=== PATIENT | male | born 1960 | race African-American/Black ===

== ENCOUNTER 2024-02-21 04:18 | Inpatient (IN) | payer SELFPAY ==
[2024-02-21] VITALS (15 sets, daily range): BP systolic 118–163; BP diastolic 68–136; PULSE 69–85; RESP 16–31; TEMP 97.6–98.7; O2SAT 95–96
[~2024-02-21] VITALS: Ht 195.6 cm; Wt 86.6 kg
[2024-02-21] MEDS ORDERED: IPRATROPIUM BROMIDE (0.02%) 0.5MG/2.5ML NEB HHN STA (04:27)
[2024-02-21] MEDS ORDERED: ALBUTEROL (0.083%) 2.5MG/3ML NEB HHN SCH (04:30)
[2024-02-21] MEDS: MAGNESIUM 2 G PREMIX 50 ML IV ONE (05:11)
[2024-02-21] MEDS: ONDANSETRON HCL 4MG/2ML INJ IV STA (05:11)
[2024-02-21] MEDS: METHYLPREDNISOLONE SOD SUCC 125MG/2ML (ACT-O-VIAL) IV STA (05:11)
[2024-02-21] MEDS: FUROSEMIDE 40MG/4ML VIAL IV ONE (05:11)
[2024-02-21 05:13] LABS: BASOPHILS % 1.1 % (0.0-2.0); CHLORIDE 108 mEq/L (98-107); EOSINOPHILS % 4.1 % (0.0-5.0); HEMATOCRIT. 40.9 % (42.0-52.0); HEMOGLOBIN. 13.4 g/dL (14.0-18.0); LYMPHOCYTES % 26.4 % (20.0-50.0); MEAN CORPUSCULAR HEMOGLOBIN 28.3 pg (28.0-32.0); MEAN CORPUSCULAR HGB CONC 32.7 g/dL (31.0-37.0); MEAN CORPUSCULAR VOLUME 86.4 fL (80.0-94.0); MEAN PLATELET VOLUME 9.5 fl (7.4-10.4); MONOCYTES % 8.5 % (2.0-8.0); NEUTROPHILS % 59.9 % (40.0-76.0); PLATELET 212 x1000/uL (130-400); RED BLOOD CELL COUNT 4.74 mill/uL (4.7-6.1); SODIUM 141 mEq/L (136-145); WHITE BLOOD COUNT 6.8 x1000/uL (4.5-11.0)
[2024-02-21 05:15] LABS: CALCIUM 9.3 mg/dL (8.7-10.4)
[2024-02-21 05:19] LABS: CREATININE 1.5 mg/dL (0.6-1.3)
[2024-02-21] MEDS ORDERED: CEFTRIAXONE 1GM/50ML 50 ML IV NR (05:30)
[2024-02-21] MEDS ORDERED: AZITHROMYCIN 500MG/250ML 250 ML IV NR (05:30)
[2024-02-21 06:25] LABS: TROPONIN I HIGH SENSITIVITY 86 ng/L (3.0-53)
[2024-02-21 06:46] LABS: CARBON DIOXIDE 23 mEq/L (21-32)
[2024-02-21 06:51] LABS: GLUCOSE 100 mg/dL (70-105); UREA NITROGEN BLOOD 27 mg/dL (9-23)
[2024-02-21] MEDS ORDERED: MAGNESIUM/ALUMINUM HYDROXIDE/SIMETHICONE 30ML UDC PO PRN (07:15)
[2024-02-21] MEDS ORDERED: GUAIFENESIN 200MG/10ML SUGAR FREE UDC PO PRN (07:15)
[2024-02-21] MEDS ORDERED: DOCUSATE SODIUM 100MG CAPSULE PO PRN (07:15)
[2024-02-21] MEDS ORDERED: ONDANSETRON HCL 4MG/2ML INJ IV PRN (07:15)
[2024-02-21] MEDS ORDERED: ACETAMINOPHEN 325MG TABLET PO PRN (07:15)
[2024-02-21] MEDS: NITROGLYCERIN OINT 1GM/INCH UDPKT TD SCH (07:37)
[2024-02-21 07:40] LABS: TROPONIN I HIGH SENSITIVITY 77 ng/L (3.0-53)
[2024-02-21] MEDS ORDERED: NITROGLYCERIN 0.4MG TABLET SL SL PRN (07:45)
[2024-02-21] MEDS: CLONIDINE 0.1MG TABLET PO PRN (07:50)
[2024-02-21] MEDS: ENOXAPARIN 40MG/0.4ML SYR SUBCUT SCH (08:00)
[2024-02-21] MEDS ORDERED: CEFTRIAXONE 1GM/50ML 50 ML IV SCH (08:00)
[2024-02-21 08:23] LABS: IRON 77 ug/dL (65-175)
[2024-02-21 08:24] LABS: TRIGLYCERIDE 82 mg/dL (0-150)
[2024-02-21 08:25] LABS: LDL CHOLESTEROL 114 mg/dL (5-100)
[2024-02-21 08:26] LABS: CHOLESTEROL 175 mg/dL (<200); HDL CHOLESTEROL 55 mg/dL (>55); TOTAL IRON BINDING CAPACITY 309 ug/dl (250-425)
[2024-02-21 08:28] LABS: THYROID STIMULATING HORMONE 1.14 uIU/mL (0.55-4.78)
[2024-02-21] MEDS ORDERED: AZITHROMYCIN 500 MG in DEXT 5% WATER 250 ML IV SCH (08:30)
[2024-02-21] MEDS: FUROSEMIDE 40MG/4ML VIAL IVP SCH (09:20)
[2024-02-21] MEDS: NIFEDIPINE XL 60MG TAB PO SCH (09:21)
[2024-02-21] MEDS: LOSARTAN 50 MG TABLET PO SCH (09:21)
[2024-02-21] MEDS: FAMOTIDINE 20MG TABLET PO SCH (09:21)
[2024-02-21] MEDS: GUAIFENESIN 600MG ER TABLET PO SCH (09:21)
[2024-02-21] MEDS: ASPIRIN 81MG EC TABLET PO SCH (09:21)
[2024-02-21] MEDS: SPIRONOLACTONE 25MG TABLET PO SCH (09:21)
[2024-02-21] MEDS: CEFTRIAXONE 1GM/50ML 50 ML IV SCH (13:06)
[2024-02-21] MEDS: AZITHROMYCIN 500MG/250ML 250 ML IV SCH (13:06)
[2024-02-21] MEDS: HYDRALAZINE HCL 50MG TABLET PO SCH (14:22)
[2024-02-21 14:32] LABS: FOLIC ACID (FOLATE) SERUM 19.98 ng/mL (>5.38)
[2024-02-21 15:01] LABS: VITAMIN B12 SERUM 423 pg/mL (211-911)
[2024-02-21] MEDS: IPRATROPIUM/ALBUTEROL 0.5-3(2.5)MG/3ML NEB HHN SCH (16:00)
[2024-02-21 16:11] LABS: CREATINE KINASE MB FRACTION 2.4 ng/mL (0.5-3.6)
[2024-02-21 20:45] LABS: *AMPHETAMINES SCREEN URINE NEGATIVE (NEGATIVE); *BENZODIAZEPINES SCREEN URINE NEGATIVE (NEGATIVE)
[2024-02-21 20:46] LABS: *BARBITURATES SCREEN URINE NEGATIVE (NEGATIVE); *COCAINE SCREEN URINE PRESUMPTIVE POSITIVE (NEGATIVE); CANNABINOID URINE SCREEN NEGATIVE (NEGATIVE); ECSTASY MDMA SCREEN URINE NEGATIVE (NEGATIVE); METHADONE URINE SCREEN NEGATIVE (NEGATIVE); OPIATES URINE SCREEN NEGATIVE (NEGATIVE); PHENCYCLIDINE URINE SCREEN NEGATIVE (NEGATIVE)
[2024-02-21] MEDS ORDERED: ZOLPIDEM TARTRATE 5MG TABLET PO PRN (21:00)
[2024-02-22] VITALS (10 sets, daily range): BP systolic 121–161; BP diastolic 63–99; PULSE 73–81; RESP 18–32; TEMP 97–98.2
[2024-02-22 02:47] LABS: CREATINE KINASE MB FRACTION 2.5 ng/mL (0.5-3.6)
[2024-02-22 06:15] LABS: BASOPHILS % 0.5 % (0.0-2.0); EOSINOPHILS % 1.6 % (0.0-5.0); HEMOGLOBIN. 12.8 g/dL (14.0-18.0); LYMPHOCYTES % 26.8 % (20.0-50.0); MEAN CORPUSCULAR HEMOGLOBIN 28.2 pg (28.0-32.0); MEAN CORPUSCULAR HGB CONC 32.8 g/dL (31.0-37.0); MEAN CORPUSCULAR VOLUME 85.9 fL (80.0-94.0); MEAN PLATELET VOLUME 8.9 fl (7.4-10.4); MONOCYTES % 10.9 % (2.0-8.0); NEUTROPHILS % 60.2 % (40.0-76.0); PLATELET 191 x1000/uL (130-400); RED BLOOD CELL COUNT 4.54 mill/uL (4.7-6.1); RED CELL DISTRIBUTION WIDTH 15.1 % (11.6-14.6); WHITE BLOOD COUNT 9.2 x1000/uL (4.5-11.0)
[2024-02-22 06:21] LABS: CHLORIDE 107 mEq/L (98-107); SODIUM 140 mEq/L (136-145)
[2024-02-22 06:23] LABS: CALCIUM 8.8 mg/dL (8.7-10.4); CARBON DIOXIDE 26 mEq/L (21-32)
[2024-02-22 06:28] LABS: CREATININE 1.6 mg/dL (0.6-1.3); GLUCOSE 107 mg/dL (70-105); UREA NITROGEN BLOOD 30 mg/dL (9-23)
[2024-02-22 06:30] LABS: ALANINE AMINOTRANSFERASE 47 IU/L (10-49); ALBUMIN 3.7 g/dL (3.2-4.8); ASPARTATE AMINOTRANSFERASE 28 IU/L (<34); BILIRUBIN TOTAL 0.4 mg/dL (0.1-1.0); PHOSPHORUS 3.4 mg/dL (2.5-4.9); PROTEIN TOTAL 6.1 g/dL (6.0-8.3)
[2024-02-22] MEDS: HYDRALAZINE HCL 100MG TABLET PO SCH (13:24)
[2024-02-22] MEDS: ACETAMINOPHEN 325MG TABLET PO PRN (20:39)
[2024-02-23] VITALS (7 sets, daily range): BP systolic 122–169; BP diastolic 67–95; PULSE 76–85; RESP 16–26; TEMP 97.2–98.2; O2SAT 97–98
[2024-02-23] MEDS: IPRATROPIUM/ALBUTEROL 0.5-3(2.5)MG/3ML NEB NEB PRN (06:42)
[2024-02-23] MEDS ORDERED: ISOS120T13 MT (08:26)
[2024-02-23] MEDS ORDERED: NIFE-32 PO (08:26)
[2024-02-23] MEDS ORDERED: HYDR100T26 PO (08:26)
[2024-02-23] MEDS ORDERED: SPIR25TA PO (08:26)
[2024-02-23] MEDS ORDERED: LOSA50TA41 PO (08:26)
[2024-02-23] MEDS ORDERED: FURO80TA87 MT (08:26)
[2024-02-23] MEDS ORDERED: ASPI-1406 PO (08:26)
== END 2024-02-23 13:50 | disposition home or self-care (01) | DRG 190 ==
LOC: ER 04:25 → 5EST 05:49
PROVIDERS: ADMIT Internal Medicine; ATTEND Internal Medicine
PROC: 5A09357 Assistance with Respiratory Ventilation, Less than 24 Consecutive Hours, Continuous Positive Airway Pressure (ICD-10-PCS; principal; 2024-02-21)
DX: I21.4 Non-ST elevation (NSTEMI) myocardial infarction (principal); J96.01 Acute respiratory failure with hypoxia; I50.43 Acute on chronic combined systolic (congestive) and diastolic (congestive) heart failure; N17.9 Acute kidney failure, unspecified; I11.0 Hypertensive heart disease with heart failure; I16.1 Hypertensive emergency; Z20.822 Contact with and (suspected) exposure to COVID-19; F14.10 Cocaine abuse, uncomplicated; F17.210 Nicotine dependence, cigarettes, uncomplicated; Z91.148 Patient's other noncompliance with medication regimen for other reason; Z91.048 Other nonmedicinal substance allergy status; Z79.82 Long term (current) use of aspirin; Z79.899 Other long term (current) drug therapy
CPT/HCPCS: 36415; 71045; 76770; 80048; 80053; 80061; 80305; 82550; 82553; 82607; 82746; 83036; 83540; 83550; 83605; 83735; 83880; 84100; 84145; 84439; 84443; 84484; 85025; 85379; 87426; 93005; 93306; 93970; 94640; 94644; 99285; C1893; J0456; J0696; J1650; J1940; J2405; J2919; J3475; J7060

== ENCOUNTER 2024-07-18 18:17 | Emergency (ER) | payer OTHER ==
[~2024-07-18] VITALS: Ht 188 cm; Wt 114.0 kg
[~2024-07-18 18:17] MED LIST: ASPI-1406 PO; FURO80TA87 MT; HYDR100T11 PO; ISOS120T13 MT; LOSA50TA41 PO; NIFE-32 PO; SPIR25TA PO
[2024-07-18 18:18] VITALS: O2SAT 100
[2024-07-18] MEDS: TRAMADOL 50MG TABLET PO NR (19:15)
[2024-07-18 19:20] LABS: BASOPHILS % 0.5 % (0.0-2.0); EOSINOPHILS % 3.4 % (0.0-5.0); HEMOGLOBIN. 13.5 g/dL (14.0-18.0); LYMPHOCYTES % 18.7 % (20.0-50.0); MEAN CORPUSCULAR HEMOGLOBIN 28.3 pg (28.0-32.0); MEAN CORPUSCULAR VOLUME 85.9 fL (80.0-94.0); MEAN PLATELET VOLUME 8.5 fl (7.4-10.4); MONOCYTES % 14.7 % (2.0-8.0); NEUTROPHILS % 62.7 % (40.0-76.0); PLATELET 217 x1000/uL (130-400); RED BLOOD CELL COUNT 4.77 mill/uL (4.7-6.1); RED CELL DISTRIBUTION WIDTH 14.5 % (11.6-14.6); WHITE BLOOD COUNT 5.5 x1000/uL (4.5-11.0)
[2024-07-18 19:26] LABS: CHLORIDE 113 mEq/L (98-107); SODIUM 143 mEq/L (136-145)
[2024-07-18 19:27] LABS: CALCIUM 9.1 mg/dL (8.7-10.4); CARBON DIOXIDE 24 mEq/L (21-32)
[2024-07-18 19:32] LABS: CREATININE 1.5 mg/dL (0.6-1.3); GLUCOSE 87 mg/dL (70-105); UREA NITROGEN BLOOD 20 mg/dL (9-23)
[2024-07-18 19:55] LABS: TROPONIN I HIGH SENSITIVITY 57 ng/L (3.0-53)
[2024-07-18] MEDS: METOPROLOL TARTRATE 25MG TABLET PO ONE (20:47)
[2024-07-18] MEDS: ASPIRIN 325MG EC TABLET PO ONE (20:47)
[2024-07-18 22:00] LABS: TROPONIN I HIGH SENSITIVITY 59 ng/L (3.0-53)
[2024-07-18 22:30] VITALS: TEMP 36.89184; O2SAT 95
[2024-07-18 23:17] VITALS: BP 138/65; PULSE 69; RESP 16
[2024-07-18] MEDS: MORPHINE SULFATE 4 MG/ML INJ (FOR IV/IM USE) IV ONE (23:17)
[2024-07-19 00:44] LABS: TROPONIN I HIGH SENSITIVITY 56 ng/L (3.0-53)
== END 2024-07-19 00:39 | disposition short-term general hospital (02) ==
LOC: ER 18:17
DX: I11.0 Hypertensive heart disease with heart failure (principal); I50.9 Heart failure, unspecified; R51.9 Headache, unspecified; Z79.82 Long term (current) use of aspirin; Z79.899 Other long term (current) drug therapy
CPT/HCPCS: 99285; 96374; 70450; 71045; 80048; 83880; 85025; 84484; 93005; 36415; J2270